=== PATIENT | male | born 1980 | race Caucasian/White ===

== ENCOUNTER 2019-02-10 04:25 | Emergency (ER) | payer SELFPAY ==
[2019-02-10] MEDS ORDERED: Morphine 10 MG/ML VIAL ONE (04:51)
[2019-02-10] MEDS ORDERED: Ketorolac Tromethamine 60 MG/2 ML VIAL ONE (05:47)
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
== END 2019-02-10 06:00 ==
LOC: ERS 04:25
DX: S42.202A Unspecified fracture of upper end of left humerus, initial encounter for closed fracture (principal); X50.1XXA Overexertion from prolonged static or awkward postures, initial encounter
CPT/HCPCS: 96372; J1885; J2270